=== PATIENT | male | born 1980 | race Caucasian/White ===

== ENCOUNTER → 2021-11-11 | Day surgery (SDC) | payer OTHER ==
[~2021-11-11] VITALS: Ht 177.8 cm; Wt 112.5 kg
[~2021-11-11] MED LIST: FLEXERIL10 MG PO; MEDROL 4MG DOSEP4 MG PO; METHADONE HCL40 MG PO; TESTOSTERO200 MG/1 M IM; WELLBUTRIN XL150 MG PO
== END | disposition home or self-care (01) ==
LOC: FAS 06:34
DX: K59.03 Drug induced constipation (principal); K21.9 Gastro-esophageal reflux disease without esophagitis; E78.5 Hyperlipidemia, unspecified; J44.9 Chronic obstructive pulmonary disease, unspecified; E66.01 Morbid (severe) obesity due to excess calories; F41.9 Anxiety disorder, unspecified; F32.A Depression, unspecified; F17.210 Nicotine dependence, cigarettes, uncomplicated; Z68.35 Body mass index [BMI] 35.0-35.9, adult; Z88.0 Allergy status to penicillin; Z79.899 Other long term (current) drug therapy; Z72.89 Other problems related to lifestyle; Z90.49 Acquired absence of other specified parts of digestive tract
CPT/HCPCS: J2704; J7120